=== PATIENT | female | born 1990 | race African-American/Black ===

== ENCOUNTER 2017-01-19 17:45 | Emergency (ER) | payer SELFPAY ==
[2017-01-19 18:01] VITALS: BMI 28.0
[2017-01-19] MEDS ORDERED: morphine CARPU-JECT 4 MG/1 ML DISP.SYRIN IVPUSH ONE (20:16)
[2017-01-19] MEDS ORDERED: ONDANSETRON 4 MG/2 ML VIAL IVPUSH ONE (20:16)
[2017-01-19] MEDS ORDERED: SODIUM CHLORIDE 1,000 ML IV STA (20:16)
[2017-01-19] MEDS ORDERED: morphine CARPU-JECT 4 MG/1 ML DISP.SYRIN ONE (20:23)
[2017-01-19] MEDS ORDERED: ONDANSETRON 4 MG/2 ML VIAL ONE (20:24)
[2017-01-19 20:52] LABS: BASOPHIL 0.8 % (0-2.0); EOSINOPHIL 3.2 % (0-4.5); MCH 27.6 pg (25.7-33.7); MCHC 31.9 g/dl (32.0-36.0); MEAN CELL VOLUME 86.4 fl (80-96); MEAN PLT VOLUME 8.4 fl (7.5-11.1); PLATELET COUNT 238 K/MM3 (134-434); RDW 14.3 % (11.6-15.6); WHITE BLOOD COUNT 11.3 K/mm3 (4.0-10.0)
[2017-01-19 20:56] LABS: URINE APPEARANCE CLEAR; URINE BILIRUBIN NEGATIVE (NEGATIVE); URINE COLOR STRAW; URINE GLUCOSE (UA) NEGATIVE (NEGATIVE); URINE KETONE NEGATIVE (NEGATIVE); URINE LEUK ESTERASE NEGATIVE (NEGATIVE); URINE NITRITE NEGATIVE (NEGATIVE); URINE PROTEIN NEGATIVE (NEGATIVE); URINE UROBILINOGEN NEGATIVE E.U./dl (0.2-1.0)
[2017-01-19 20:57] LABS: URINE BLOOD 1+ (NEGATIVE)
[2017-01-19 21:03] LABS: URINE MUCUS RARE; URINE RBC 7 /hpf (0-3); URINE WBC 1 /hpf (3-5)
[2017-01-19 21:21] LABS: ALBUMIN 3.9 g/dl (3.4-5.0); ANION GAP 8 (8-16); CALCIUM 9.1 mg/dL (8.5-10.1); CO2 28 mmol/L (21-32); CREATININE 0.9 mg/dL (0.55-1.02); GLUCOSE,RANDOM 84 mg/dL (74-106); SGOT/AST 19 U/L (15-37); SGPT/ALT 24 U/L (12-78)
--- NOTE | 2017-01-19 21:21 | PDOC ---
History of Present Illness - General Chief Complaint: Pain Stated Complaint: MASS ON RIGHT SIDE PAIN Time Seen by Provider: 01/19/17 19:11 History Source: Patient Exam Limitations: No Limitations - History of Present Illness Travel History: No Initial Comments: 01/19/17 23:46 26yo Female patient w/ PmHx: Ectopic x2 presents to ED c/o right lower pelvic pain. Patient states symptoms have been ongoing x 1 year, but today much worse than before. She reports Tylenol and Ibuprofen use with minimal relief. Reports no vaginal bleeding. + Nausea. LNMP: 1.5 weeks. Denies fever, rash, dysuria, hematuria, vaginal odor/discharge or any other complaints at this time. Timing/Duration: reports: getting worse Quality: reports: severe Abdominal Pain Onset Location: reports: RLQ Pain Radiation: reports: no radiation Activities at Onset: reports: none Treatment Prior to Arrive: worse with: analgesics, antacids, cold pack, heat, laxative, enema, other Aggravating Factors: worse with: None, Defecation, Eating, Emotional upset, Exertion, Hilda, Movement, Voiding, Change in position Alleviating Factors: worse with: None, Belching, Shallow Breathing, Defecation, Eating, Holding Breath, Passing Gas, Change in Position, Rest, Voiding, Vomiting Past History - Travel Traveled outside of the country in the last 30 days: No Close contact w/someone who was outside of country & ill: No - Past Medical History Allergies/Adverse Reactions: Allergies Allergy/AdvReac Type Severity Reaction Status Date / Time No Known Allergies Allergy Verified 01/19/17 18:03 Home Medications: Ambulatory Orders Ibuprofen [Motrin -] 600 mg PO Q6H PRN #20 tablet 01/20/17 Ondansetron [Zofran Odt -] 4 mg SL Q8H PRN #20 od.tablet 01/20/17 Oxycodone HCl/Acetaminophen [Percocet 5-325 mg Tablet] 1 tab PO Q6H PRN #20 tablet MDD 4 tabs 01/20/17 Thyroid Disease: No - Reproductive History Is Patient Now?: No (#): 3 Para: 1 - Psycho/Social/Smoking Cessation Hx Anxiety: No Suicidal Ideation: No Smoking History: Never smoked Have you smoked in the past 12 months: No Information on smoking cessation initiated: No Hx Alcohol Use: No Drug/Substance Use Hx: No Substance Use Type: None Review of Systems - Review of Systems Able to Perform ROS?: Yes Is the patient limited Icelandic proficient: No Constitutional: No: Chills, Fever, Night Sweats Respiratory: No: Cough, Shortness of Breath, Stridor, Wheezing Cardiac (ROS): No: Chest Pain, Palpitations, Syncope, Chest Tightness ABD/GI: Yes: Nausea, Other (RLQ Pelvic tenderness). No: Constipated, Diarrhea, Poor Appetite, Poor Fluid Intake, Vomiting, Abdominal cramping : No: Dysuria, Frequency, Flank Pain, Hematuria, Pain Musculoskeletal: No: Back Pain Integumentary: No: Bruising, Erythema, Pruritus, Rash, Sweating Neurological: No: Headache, Seizure, Tingling, Tremors, Weakness, Dizziness All Other Systems: Reviewed and Negative *Physical Exam - Vital Signs Last Vital Signs Temp Pulse Resp BP Pulse Ox 98.3 F 69 18 114/85 99 01/19/17 21:00 01/19/17 21:00 01/19/17 21:00 01/19/17 21:00 01/19/17 21:00 - Physical Exam General Appearance: Yes: Nourished, Appropriately Dressed. No: Apparent Distress, Mild Distress, Moderate Distress, Severe Distress Neck: positive: Trachea midline, Supple. negative: Decreased range of motion, Stridor, Lymphadenopathy (R), Lymphadenopathy (L) Respiratory/Chest: positive: Lungs Clear, Normal Breath Sounds. negative: Chest Tender, Respiratory Distress, Accessory Muscle Use, Labored Respiration, Rapid RR Cardiovascular: positive: Regular Rhythm, Regular Rate. negative: Edema Gastrointestinal/Abdominal: positive: Normal Bowel Sounds, Tender, Soft, Guarding, Rebound, Tenderness (Right pelvic/adenexa region). negative: Distended Musculoskeletal: positive: Normal Inspection. negative: CVA Tenderness Extremity: positive: Normal Capillary Refill, Normal Inspection, Normal Range of Motion. negative: Pedal Edema, Swelling, Calf Tenderness, Erythema Integumentary: positive: Normal Color, Dry, Warm. negative: Bruising Neurologic: positive: community service manager II-XII NML intact, Fully Oriented, Alert, Normal Mood/ Affect, Normal Response, Motor Strength 5/5 ED Treatment Course - LABORATORY CBC & Chemistry Diagram: 01/19/17 20:26 01/19/17 20:34 - ADDITIONAL ORDERS Additional order review: Laboratory Results 01/19/17 20:45 Urine Color Straw Urine Appearance Clear Urine pH 7.0 Urine Protein Negative Urine Glucose (UA) Negative Urine Ketones Negative Urine Blood 1+ H Urine Nitrite Negative Urine Bilirubin Negative Urine Urobilinogen Negative Ur Leukocyte Esterase Negative Urine RBC 7 Urine WBC 1 Ur Epithelial Cells Rare Urine Mucus Rare Urine HCG, Qual Negative 01/19/17 20:26 RBC 4.91 MCV 86.4 MCHC 31.9 L RDW 14.3 MPV 8.4 Neutrophils % 60.0 Lymphocytes % 30.7 Monocytes % 5.3 Eosinophils % 3.2 Basophils % 0.8 - RADIOLOGY Radiology Studies Ordered: Category Date Time Status ABDOMEN & PELVIS CT WITH CONTR [CT] Stat CT Scan 01/19/17 21:02 Ordered - Medications Given in the ED: ED Medications Discontinued Medications Generic Name Dose Route Start Last Admin Trade Name Freq PRN Reason Stop Dose Admin Sodium Chloride 1,000 mls @ 1,000 mls/hr 01/19/17 20:16 01/19/17 20:38 Normal Saline - IV 01/19/17 21:15 1,000 mls/hr ASDIR STA Administration Morphine Sulfate 4 mg 01/19/17 20:16 01/19/17 20:38 Morphine Injection - IVPUSH 01/19/17 20:17 4 mg ONCE ONE Administration Ondansetron HCl 4 mg 01/19/17 20:16 01/19/17 20:38 Zofran Injection IVPUSH 01/19/17 20:17 4 mg ONCE ONE Administration *DC/Admit/Observation/Transfer 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 FULLER FOR FURTHER EVALUATION. TAKE MEDICATIONS PRESCRIBED. DO NOT DRIVE, DRINK ALCOHOL, OR OPERATE HEAVY MACHINERY WHILE TAKING PERCOCET. YOU NEED TO CALL TO SCHEDULE APPOINTMENT SOON POSSIBLE AND DO NOT PUT THIS OFF. Print Language: [place] - Post Discharge Activity Work/School Note: Back to Work
[2017-01-19 21:22] LABS: ALK PHOS 86 U/L (45-117); BILIRUBIN,TOTAL 0.2 mg/dL (0.2-1.0); TOT PROT 7.5 g/dl (6.4-8.2)
--- NOTE | 2017-01-19 21:49 | PDOC ---
*Physical Exam - Vital Signs Last Vital Signs Temp Pulse Resp BP Pulse Ox 98.3 F 69 18 114/85 99 01/19/17 21:00 01/19/17 21:00 01/19/17 21:00 01/19/17 21:00 01/19/17 21:00 ED Treatment Course - LABORATORY CBC & Chemistry Diagram: 01/19/17 20:26 01/19/17 20:34 - ADDITIONAL ORDERS Additional order review: Laboratory Results 01/19/17 01/19/17 20:45 20:34 Sodium 141 Potassium 4.6 Chloride 105 Carbon Dioxide 28 Anion Gap 8 BUN 11 Creatinine 0.9 Creat Clearance w eGFR > 60 Random Glucose 84 Calcium 9.1 Total Bilirubin 0.2 AST 19 ALT 24 Alkaline Phosphatase 86 Total Protein 7.5 Albumin 3.9 Urine Color Straw Urine Appearance Clear Urine pH 7.0 Urine Protein Negative Urine Glucose (UA) Negative Urine Ketones Negative Urine Blood 1+ H Urine Nitrite Negative Urine Bilirubin Negative Urine Urobilinogen Negative Ur Leukocyte Esterase Negative Urine RBC 7 Urine WBC 1 Ur Epithelial Cells Rare Urine Mucus Rare Urine HCG, Qual Negative 01/19/17 20:26 RBC 4.91 MCV 86.4 MCHC 31.9 L RDW 14.3 MPV 8.4 Neutrophils % 60.0 Lymphocytes % 30.7 Monocytes % 5.3 Eosinophils % 3.2 Basophils % 0.8 - Medications Given in the ED: ED Medications Discontinued Medications Generic Name Dose Route Start Last Admin Trade Name Freq PRN Reason Stop Dose Admin Sodium Chloride 1,000 mls @ 1,000 mls/hr 01/19/17 20:16 01/19/17 20:38 Normal Saline - IV 01/19/17 21:15 1,000 mls/hr ASDIR STA Administration Morphine Sulfate 4 mg 01/19/17 20:16 01/19/17 20:38 Morphine Injection - IVPUSH 01/19/17 20:17 4 mg ONCE ONE Administration Ondansetron HCl 4 mg 01/19/17 20:16 01/19/17 20:38 Zofran Injection IVPUSH 01/19/17 20:17 4 mg ONCE ONE Administration Medical Decision Making - Medical Decision Making 01/19/17 21:49 agree with care from SARINA Mtz *DC/Admit/Observation/Transfer 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 FULLER FOR FURTHER EVALUATION. TAKE MEDICATIONS PRESCRIBED. DO NOT DRIVE, DRINK ALCOHOL, OR OPERATE HEAVY MACHINERY WHILE TAKING PERCOCET. YOU NEED TO CALL TO SCHEDULE APPOINTMENT SOON POSSIBLE AND DO NOT PUT THIS OFF. Print Language: CITIZEN OF [place] - Post Discharge Activity Work/School Note: Back to Work
[2017-01-20 01:40] VITALS: BP 129/84; PULSE 72; TEMP 98.7
== END 2017-01-20 01:41 | disposition home or self-care (01) ==
LOC: JER 17:45
PROC: 3E033NZ Introduction of Analgesics, Hypnotics, Sedatives into Peripheral Vein, Percutaneous Approach (ICD-10-PCS; principal; 2017-01-19)
PROC: 3E033GC Introduction of Other Therapeutic Substance into Peripheral Vein, Percutaneous Approach (ICD-10-PCS; 2017-01-19)
DX: D36.7 Benign neoplasm of other specified sites (principal); R19.03 Right lower quadrant abdominal swelling, mass and lump
CPT/HCPCS: 36415; 74177-TC; 76856-TC; 80053; 81003; 81015; 84703; 85025; 86850; 86900; 86901; 87086; 87491; 87591; 99283-25

== ENCOUNTER 2017-08-10 17:21 | Emergency (ER) | payer OTHER ==
[2017-08-10 17:57] VITALS: BMI 28.2
[2017-08-10] MEDS ORDERED: ACETAMINOPHEN 1000 MG/100 ML VIAL (NON FORMULARY) IVPB ONE (18:25)
[2017-08-10] MEDS ORDERED: ACETAMINOPHEN INJECTION 100 ML IVPB ONE (18:26)
[2017-08-10] MEDS ORDERED: SODIUM CHLORIDE 1,000 ML IV STA (18:27)
[2017-08-10 18:39] LABS: BASOPHIL 0.6 % (0-2.0); EOSINOPHIL 1.1 % (0-4.5); MCH 28.2 pg (25.7-33.7); MCHC 32.5 g/dl (32.0-36.0); MEAN CELL VOLUME 86.8 fl (80-96); MEAN PLT VOLUME 8.3 fl (7.5-11.1); NEUTROPHILS 69.8 % (42.8-82.8); PLATELET COUNT 226 K/MM3 (134-434); RDW 13.6 % (11.6-15.6); WHITE BLOOD COUNT 9.5 K/mm3 (4.0-10.0)
--- NOTE | 2017-08-10 18:41 | PDOC ---
History of Present Illness - General History Source: Patient Exam Limitations: No Limitations - History of Present Illness Initial Comments: 08/10/17 18:56 The patient is a 26 year old female with no significant past medical history who presents to the ED complaining of approximately 3 days of left flank pain and left lower quadrant pain. Patient reports the pain is moderate, sharp, and worse with lying flat. She also reports associated nausea, chills, and dysuria. No hematuria. No vomiting or diarrhea. Does not follow with a PCP. <Bell Baumann - Last Filed: 08/11/17 00:53> <Yvette Brunson - Last Filed: 08/11/17 01:12> - General Chief Complaint: SIRS, Suspected/Possible Stated Complaint: ABDOMINAL PAIN Time Seen by Provider: 08/10/17 17:40 Past History <Bell Baumann - Last Filed: 08/11/17 00:53> - Past Medical History COPD: No Thyroid Disease: No - Reproductive History Is Patient Now?: No (#): 3 Para: 1 Dysfunctional Uterine Bleeding: No Ectopic : Yes Endometrial CA: No Therapeutic (s) & number: No Tubal Ligation: No - Suicide/Smoking/Psychosocial Hx Smoking History: Never smoked Have you smoked in the past 12 months: Yes Number of Cigarettes Smoked Daily: 2 Information on smoking cessation initiated: Yes 'Breaking Loose' booklet given: 08/10/17 Hx Alcohol Use: No Drug/Substance Use Hx: No Substance Use Type: None <Yvette Brunson - Last Filed: 08/11/17 01:12> - Past Medical History Allergies/Adverse Reactions: Allergies Allergy/AdvReac Type Severity Reaction Status Date / Time No Known Allergies Allergy Verified 08/10/17 17:54 Home Medications: Ambulatory Orders Ibuprofen [Motrin -] 600 mg PO QID PRN #12 tablet 08/11/17 Levofloxacin [Levaquin -] 500 mg PO DAILY #10 tablet 08/11/17 Ondansetron [Zofran Odt -] 4 mg SL BID PRN #14 od.tablet 08/11/17 Review of Systems - Review of Systems Able to Perform ROS?: Yes Comments:: 08/10/17 18:59 GENERAL/CONSTITUTIONAL: No fever or chills. No weakness. HEAD, EYES, EARS, NOSE AND THROAT: No change in vision. No ear pain or discharge. No sore throat. CARDIOVASCULAR: No chest pain or shortness of breath. RESPIRATORY: No cough, wheezing, or hemoptysis. GASTROINTESTINAL: +Nausea. No vomiting, diarrhea or constipation. GENITOURINARY: +Left flank pain, left lower quadrant pain. +Dysuria. No hematuria. MUSCULOSKELETAL: No joint or muscle swelling or pain. No neck pain. SKIN: No rash NEUROLOGIC: No headache, vertigo, loss of consciousness, or change in strength/ sensation. ENDOCRINE: No increased thirst. No abnormal weight change. HEMATOLOGIC/LYMPHATIC: No anemia, easy bleeding, or history of blood clots. ALLERGIC/IMMUNOLOGIC: No hives or skin allergy. <Bell Baumann - Last Filed: 08/11/17 00:53> *Physical Exam - Vital Signs Last Vital Signs Temp Pulse Resp BP Pulse Ox 99.8 F H 93 H 18 118/72 99 08/10/17 17:55 08/10/17 17:55 08/10/17 17:55 08/10/17 17:55 08/10/17 17:55 - Physical Exam Comments: 08/10/17 19:00 GENERAL: Awake, alert, and fully oriented. +Mildly uncomfortable appearing. HEAD: No signs of trauma EYES: PERRLA, EOMI, sclera anicteric, conjunctiva clear ENT: Auricles normal inspection, nares patent. Moist mucosa NECK: Normal ROM, supple, no JVD, or masses LUNGS: Breath sounds equal, clear to auscultation bilaterally. No wheezes, and no crackles HEART: Regular rate and rhythm, normal S1 and S2, no murmurs, rubs or gallops ABDOMEN:+Diffuse left sided discomfort. Soft, normoactive bowel sounds. No guarding, no rebound. No masses BACK: +Left CVA tenderness. No right flank tenderness. EXTREMITIES: Normal range of motion, no edema. No clubbing or cyanosis. No cords, erythema, or tenderness NEUROLOGICAL: Alert and oriented x 3. Moves all extremities. Face is symmetric. SKIN: Warm, Dry, normal turgor, no rashes or lesions noted. <Bell Baumann - Last Filed: 08/11/17 00:53> - Vital Signs Last Vital Signs Temp Pulse Resp BP Pulse Ox 99.8 F H 93 H 18 118/72 99 08/10/17 17:55 08/10/17 17:55 08/10/17 17:55 08/10/17 17:55 08/10/17 17:55 <Yvette Brunson - Last Filed: 08/11/17 01:12> ED Treatment Course - LABORATORY CBC & Chemistry Diagram: 08/10/17 18:24 08/10/17 18:24 - ADDITIONAL ORDERS Additional order review: Laboratory Results 08/10/17 18:24 VBG pH 7.38 POC VBG pCO2 46.5 POC VBG pO2 34.4 Mixed VBG HCO3 26.7 H 08/10/17 18:24 RBC 4.38 MCV 86.8 MCHC 32.5 RDW 13.6 MPV 8.3 Neutrophils % 69.8 Lymphocytes % 18.9 D Monocytes % 9.6 D Eosinophils % 1.1 Basophils % 0.6 - RADIOLOGY Radiograph Interpretation: 08/11/17 00:54 CT of abdomen and pelvis, reviewed and interpreted by Imaging Community Health Advisor. Impression: Suspect left pyelonephritis. No renal stones or evidence of obstructive uropathy. Appendix is normal. Superficial subcutaneous soft tissue denisty along the right anterior pelvic wall as described. - Medications Given in the ED: ED Medications Discontinued Medications Generic Name Dose Route Start Last Admin Trade Name Freq PRN Reason Stop Dose Admin Acetaminophen 1,000 mg 08/10/17 18:25 08/10/17 18:32 Ofirmev Injection - IVPB 08/10/17 18:26 1,000 mg ONCE ONE Administration <Bell Baumann - Last Filed: 08/11/17 00:53> - LABORATORY CBC & Chemistry Diagram: 08/10/17 18:24 08/10/17 18:24 - Medications Given in the ED: ED Medications Discontinued Medications Generic Name Dose Route Start Last Admin Trade Name Freq PRN Reason Stop Dose Admin Acetaminophen 1,000 mg 08/10/17 18:25 08/10/17 18:32 Ofirmev Injection - IVPB 08/10/17 18:26 1,000 mg ONCE ONE Administration <Yvette Brunson - Last Filed: 08/11/17 01:12> Medical Decision Making - Medical Decision Making 08/11/17 00:47 26-year-old female presents with several days of flank pain and chills. Past medical history noncontributory. Chest patient has low-grade fever negative test Urinalysis shows UTI and patient started on antibiotics 08/11/17 01:10 The patient does have a history of kidney stones in the past with CAT scan did not show any renal stones as evidence of obstructive uropathy. Her appendix is normal. CAT scan findings consistent of left pyelonephritis IMP pyelonephritis pt given levaquin and RX for levaquin eprecribed to [facility] -she has not been vomiting and will be discharged home w sublingual zofran to be used prn nausea <Yvette Brunson - Last Filed: 08/11/17 01:12> *DC/Admit/Observation/Transfer - Attestations Scribe Attestion: 08/10/17 19:01 Documentation prepared by Bell Baumann, acting as medical and scientific illustrator for Yvette Brunson MD. <Bell Baumann - Last Filed: 08/11/17 00:53> <Yvette Brunson - Last Filed: 08/11/17 01:12> Diagnosis at time of Disposition: Pyelonephritis - Discharge Dispostion Disposition: HOME Condition at time of disposition: Improved - Prescriptions Prescriptions: Ibuprofen [Motrin -] 600 mg PO QID PRN #12 tablet PRN Reason: Back Pain Levofloxacin [Levaquin -] 500 mg PO DAILY #10 tablet Ondansetron [Zofran Odt -] 4 mg SL BID PRN #14 od.tablet PRN Reason: Nausea And/Or Vomiting - Patient Instructions Printed Discharge Instructions: DI for Kidney Infection, DI for Fever (Symptom ) -- Adult Additional Instructions: 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
[2017-08-10 18:47] LABS: VENOUS BLOOD GAS HCO3 26.7 meq/L (19-25); VENOUS PH 7.38 (7.32-7.42)
[2017-08-10 18:53] LABS: INR 1.12 (0.82-1.09); PROTHROMBIN TIME (PATIENT) 12.6 SEC (9.98-11.88)
[2017-08-10 18:56] LABS: ACTIVATED PTT 27.9 SECONDS (26.9-34.4)
[2017-08-10 19:06] LABS: ALBUMIN 3.1 g/dl (3.4-5.0); ANION GAP 8 (8-16); BILIRUBIN,TOTAL 0.2 mg/dL (0.2-1.0); CALCIUM 8.1 mg/dL (8.5-10.1); CO2 24 mmol/L (21-32); CREATININE 0.8 mg/dL (0.55-1.02); GLUCOSE,RANDOM 72 mg/dL (74-106); SGOT/AST 15 U/L (15-37); SGPT/ALT 24 U/L (12-78); TOT PROT 6.9 g/dl (6.4-8.2)
[2017-08-10 19:07] LABS: ALK PHOS 70 U/L (45-117)
[2017-08-10 22:06] LABS: URINE APPEARANCE CLOUDY; URINE BILIRUBIN NEGATIVE (NEGATIVE); URINE BLOOD 2+ (NEGATIVE); URINE COLOR YELLOW; URINE GLUCOSE (UA) NEGATIVE (NEGATIVE); URINE KETONE NEGATIVE (NEGATIVE); URINE NITRITE POSITIVE (NEGATIVE); URINE PROTEIN NEGATIVE (NEGATIVE); URINE UROBILINOGEN 4.0 E.U/dl mg/dL (0.2-1.0)
[2017-08-10 22:20] LABS: URINE LEUK ESTERASE 1+ (NEGATIVE)
[2017-08-10 22:31] LABS: URINE BACTERIA MODERATE /hpf (NONE SEEN); URINE MUCUS RARE; URINE RBC 7 /hpf (0-3); URINE WBC 47 /hpf (3-5)
[2017-08-10] MEDS ORDERED: SULFAMETHOXAZOLE/TRIMETHOPRIM 800MG/160MG D.S. TABLET PO ONE (23:37)
[2017-08-10] MEDS ORDERED: IBUPROFEN 600 MG TABLET (FP) PO ONE (23:37)
[2017-08-11] MEDS ORDERED: SULFAMETHOXAZOLE/TRIMETHOPRIM 800MG/160MG D.S. TABLET ONE (00:14)
[2017-08-11] MEDS ORDERED: IBUPROFEN 600 MG TABLET (FP) PO ONE (00:14)
[2017-08-11 00:40] VITALS: BP 111/59; PULSE 88; TEMP 98.2
[2017-08-11] MEDS ORDERED: LEVOFLOXACIN 750 MG TABLET PO STA (01:05)
[2017-08-11] MEDS ORDERED: LEVOFLOXACIN 500 MG TABLET (FP) ONE (01:11)
[2017-08-11 09:00] LABS: URINE LEUK ESTERASE 1+ (NEGATIVE)
== END 2017-08-11 01:24 | disposition home or self-care (01) ==
LOC: JER 17:21
PROC: 3E0337Z Introduction of Electrolytic and Water Balance Substance into Peripheral Vein, Percutaneous Approach (ICD-10-PCS; principal; 2017-08-10)
PROC: 3E0333Z Introduction of Anti-inflammatory into Peripheral Vein, Percutaneous Approach (ICD-10-PCS; 2017-08-10)
DX: N12 Tubulo-interstitial nephritis, not specified as acute or chronic (principal)
CPT/HCPCS: 36415; 74176; 80053; 81003; 81015; 82803; 83605; 84703; 85025; 85610; 85730; 87040; 87086; 87186; 99285-25

== ENCOUNTER 2020-12-16 16:41 | Emergency (ER) | payer OTHER ==
[2020-12-16 17:10] VITALS: TEMP 97.8; BMI 71.8
[2020-12-16] MEDS ORDERED: ONDANSETRON 4 MG/2 ML VIAL IVPB ONE (17:18)
[2020-12-16] MEDS ORDERED: SODIUM CHLORIDE 1,000 ML IV STA (17:18)
[2020-12-16] MEDS ORDERED: morphine CARPU-JECT 4 MG/1 ML DISP.SYRIN IVPUSH ONE ×2 (17:36→21:32)
[2020-12-16 18:03] LABS: BASO % 0.6 % (0-2.0); HEMATOCRIT 42.7 % (32.4-45.2); HEMOGLOBIN 13.8 GM/dL (10.7-15.3); LYMPH % 19.4 % (8-40); MCH 28.2 pg (25.7-33.7); MCHC 32.4 g/dl (32.0-36.0); MEAN CELL VOLUME 87.2 fl (80-96); MEAN PLT VOLUME 8.3 fl (7.5-11.1); PLATELET COUNT 257 K/MM3 (134-434); RDW 14.4 % (11.6-15.6)
[2020-12-16] MEDS ORDERED: morphine SULFATE 4 MG/ML VIAL ONE (18:06)
[2020-12-16] MEDS ORDERED: ONDANSETRON 4 MG/2 ML VIAL ONE (18:06)
[2020-12-16 18:08] LABS: EPI CELLS 16 /uL (0-25.1); HCG,QUALITATIVE URINE Negative; HYALINE CASTS 0 /uL (0-3.1); PH,URINE 7.5 (5.0-8.0); URINE APPEARANCE CLEAR; URINE BACTERIA 172 /uL (0-1359); URINE BILIRUBIN NEGATIVE (NEGATIVE); URINE COLOR YELLOW; URINE GLUCOSE (UA) NEGATIVE (NEGATIVE); URINE KETONE NEGATIVE (NEGATIVE); URINE LEUK ESTERASE 1+ (NEGATIVE); URINE NITRITE NEGATIVE (NEGATIVE); URINE PROTEIN NEGATIVE (NEGATIVE); URINE RBC 72 /uL (0-23.9); URINE WBC 12 /uL (0-25.8)
[2020-12-16 18:32] LABS: ALBUMIN 3.7 g/dl (3.4-5.0); BLOOD UREA NITROGEN 11.6 mg/dL (7-18); CALCIUM 9.1 mg/dL (8.5-10.1)
[2020-12-16 18:35] LABS: CREATININE 0.9 mg/dL (0.55-1.3)
[2020-12-16 18:37] LABS: BILIRUBIN,TOTAL 0.5 mg/dL (0.2-1); TOT PROT 7.5 g/dl (6.4-8.2)
[2020-12-16] MEDS ORDERED: ACETAMINOPHEN 1000 MG/100 ML VIAL (NON FORMULARY) IVPB ONE (21:32)
[2020-12-16] MEDS ORDERED: ACETAMINOPHEN 500 MG TABLET (FP) PO ONE (22:24)
[2020-12-16] MEDS ORDERED: KETOROLAC TROMETHAMINE 30 MG/1 ML VIAL IVPUSH ONE (22:24)
[2020-12-16] MEDS ORDERED: KETOROLAC TROMETHAMINE 30 MG/1 ML VIAL ONE (22:25)
[2020-12-16] MEDS ORDERED: ACETAMINOPHEN 500 MG TABLET (FP) ONE (22:26)
[2020-12-16 22:39] VITALS: BP 127/42; PULSE 67
== END 2020-12-16 23:57 | disposition home or self-care (01) ==
LOC: JER 16:41
PROC: 3E0333Z Introduction of Anti-inflammatory into Peripheral Vein, Percutaneous Approach (ICD-10-PCS; principal; 2020-12-16)
PROC: 3E033NZ Introduction of Analgesics, Hypnotics, Sedatives into Peripheral Vein, Percutaneous Approach (ICD-10-PCS; 2020-12-16)
PROC: 3E033GC Introduction of Other Therapeutic Substance into Peripheral Vein, Percutaneous Approach (ICD-10-PCS; 2020-12-16)
PROC: 3E0337Z Introduction of Electrolytic and Water Balance Substance into Peripheral Vein, Percutaneous Approach (ICD-10-PCS; 2020-12-16)
DX: R10.84 Generalized abdominal pain (principal); N83.201 Unspecified ovarian cyst, right side
CPT/HCPCS: 36415; 74177-TC; 76830-TC; 80053; 81003; 84703; 85025; 87077; 87086; 87491; 87591; 99285-25; Q9967

== ENCOUNTER 2021-05-06 17:20 | Emergency (ER) | payer OTHER ==
[2021-05-06 17:44] VITALS: BP 126/61; PULSE 84; TEMP 98.1; BMI 29.2
[2021-05-06] MEDS ORDERED: IBUPROFEN 600 MG TABLET (FP) PO ONE ×2 (18:25→18:55)
== END 2021-05-06 21:25 | disposition home or self-care (01) ==
LOC: JER 17:20
DX: U07.1 COVID-19 (principal)
CPT/HCPCS: 71046-TC-FY; 99283-25; C9803; U0003; U0005

== ENCOUNTER 2021-05-07 16:06 | Emergency (ER) | payer OTHER ==
[2021-05-07 16:48] VITALS: BMI 29.1
[2021-05-07] MEDS ORDERED: SODIUM CHLORIDE 0.9% 500 ML INFUS.BAG IV ONE (17:36)
[2021-05-07] MEDS ORDERED: guaiFENesin 200 MG/10 ML 10 ML UNIT-DOSE CUPS PO ONE (17:36)
[2021-05-07] MEDS ORDERED: FAMOTIDINE 20 MG/50 ML IVPB 20 MG/50 ML MG IVPB ONE ×2 (17:56→18:04)
[2021-05-07] MEDS ORDERED: ONDANSETRON 4 MG/2 ML VIAL IVPUSH ONE (17:56)
[2021-05-07] MEDS ORDERED: guaiFENesin/D-METHORPHAN HB 10 ML UNIT-DOSE CUPS ONE (18:04)
[2021-05-07] MEDS ORDERED: ONDANSETRON 4 MG/2 ML VIAL ONE (18:04)
[2021-05-07 19:05] LABS: BASO % 1.1 % (0-2.0); EOS % 3.3 % (0-4.5); HEMATOCRIT 37.1 % (32.4-45.2); HEMOGLOBIN 12.4 GM/dL (10.7-15.3); LYMPH % 41.4 % (8-40); MCH 28.7 pg (25.7-33.7); MCHC 33.3 g/dl (32.0-36.0); MEAN CELL VOLUME 85.9 fl (80-96); MEAN PLT VOLUME 8.3 fl (7.5-11.1); MONO % 14.6 % (3.8-10.2); NEUT % 39.6 % (42.8-82.8); PLATELET COUNT 208 10^3/uL (134-434); RBC 4.32 M/mm3 (3.60-5.2); RDW 14.2 % (11.6-15.6); WHITE BLOOD COUNT 3.4 K/mm3 (4.0-10.0)
[2021-05-07 19:21] LABS: ALBUMIN 3.2 g/dl (3.4-5.0); BLOOD UREA NITROGEN 9.5 mg/dL (7-18); CALCIUM 8.3 mg/dL (8.5-10.1)
[2021-05-07 19:25] LABS: CREATININE 0.9 mg/dL (0.55-1.3)
[2021-05-07 19:26] LABS: BILIRUBIN,TOTAL 0.2 mg/dL (0.2-1); TOT PROT 6.7 g/dl (6.4-8.2)
[2021-05-07] MEDS ORDERED: CASIRIVIMAB/IMDEVIMAB 10 ML in SODIUM CHLORIDE 100 ML IVPB ONE (19:27)
[2021-05-07] MEDS ORDERED: ACETAMINOPHEN 1000 MG/100 ML VIAL (NON FORMULARY) IVPB ONE (21:02)
[2021-05-07 21:04] VITALS: TEMP 98.4
[2021-05-07] MEDS ORDERED: ACETAMINOPHEN INJECTION 100 ML IVPB ONE (21:08)
[2021-05-07 22:41] VITALS: BP 128/86; PULSE 80
== END 2021-05-07 22:42 | disposition home or self-care (01) ==
LOC: JER 16:06
PROC: 3E0333Z Introduction of Anti-inflammatory into Peripheral Vein, Percutaneous Approach (ICD-10-PCS; principal; 2021-05-07)
PROC: 3E03329 Introduction of Other Anti-infective into Peripheral Vein, Percutaneous Approach (ICD-10-PCS; 2021-05-07)
PROC: 3E033GC Introduction of Other Therapeutic Substance into Peripheral Vein, Percutaneous Approach (ICD-10-PCS; 2021-05-07)
PROC: 3E033GC Introduction of Other Therapeutic Substance into Peripheral Vein, Percutaneous Approach (ICD-10-PCS; 2021-05-07)
DX: U07.1 COVID-19 (principal)
CPT/HCPCS: 36415; 80053; 85025; 99284-25; J0131; M0240; Q0240

== ENCOUNTER 2023-04-20 18:20 | Emergency (ER) | payer OTHER ==
[2023-04-20 18:24] VITALS: BP 123/85; PULSE 73; RESP 18; TEMP 97.4; BMI 26.6
[2023-04-20] MEDS ORDERED: KETOROLAC TROMETHAMINE 30 MG/1 ML VIAL IVPUSH ONE (19:44)
[2023-04-20] MEDS ORDERED: ONDANSETRON 4 MG/2 ML VIAL IVPUSH ONE (19:44)
[2023-04-20] MEDS ORDERED: FAMOTIDINE 20 MG/50 ML IVPB 20 MG/50 ML MG IVPB ONE ×2 (19:44→20:08)
[2023-04-20] MEDS ORDERED: SODIUM CHLORIDE 0.9% 500 ML INFUS.BAG IV ONE (19:44)
[2023-04-20] MEDS ORDERED: KETOROLAC TROMETHAMINE 60 MG/2 ML VIAL ONE (20:08)
[2023-04-20] MEDS ORDERED: ONDANSETRON 4 MG/2 ML VIAL ONE (20:08)
[2023-04-20 20:43] LABS: BASO % 0.6 % (0-2.0); EOS % 2.4 % (0-4.5); HEMATOCRIT 40.2 % (32.4-45.2); LYMPH % 31.3 % (8-40); MCH 28.1 pg (25.7-33.7); MCHC 32.3 g/dl (32.0-36.0); MEAN CELL VOLUME 86.9 fl (80-96); MEAN PLT VOLUME 7.9 fl (7.5-11.1); MONO % 5.9 % (3.8-10.2); NEUT % 59.8 % (42.8-82.8); PLATELET COUNT 269 10^3/uL (134-434); RBC 4.63 M/mm3 (3.60-5.2); RDW 14.5 % (11.6-15.6); WHITE BLOOD COUNT 10.6 K/mm3 (4.0-10.0)
[2023-04-20 20:53] LABS: POTASSIUM 3.9 mmol/L (3.5-5.1)
[2023-04-20 20:55] LABS: ALBUMIN 3.5 g/dl (3.4-5.0); BLOOD UREA NITROGEN 9.6 mg/dL (7-18); CALCIUM 8.5 mg/dL (8.5-10.1)
[2023-04-20 20:59] LABS: CREATININE 0.7 mg/dL (0.55-1.3)
[2023-04-20 21:00] LABS: BILIRUBIN,TOTAL 0.2 mg/dL (0.2-1)
== END 2023-04-21 03:38 | disposition home or self-care (01) ==
LOC: JER 18:20
PROC: 3E033GC Introduction of Other Therapeutic Substance into Peripheral Vein, Percutaneous Approach (ICD-10-PCS; principal; 2023-04-20)
PROC: 3E0333Z Introduction of Anti-inflammatory into Peripheral Vein, Percutaneous Approach (ICD-10-PCS; 2023-04-20)
PROC: 3E033GC Introduction of Other Therapeutic Substance into Peripheral Vein, Percutaneous Approach (ICD-10-PCS; 2023-04-20)
DX: R10.84 Generalized abdominal pain (principal); R19.04 Left lower quadrant abdominal swelling, mass and lump; R11.2 Nausea with vomiting, unspecified; R19.7 Diarrhea, unspecified; R68.83 Chills (without fever); R42 Dizziness and giddiness
CPT/HCPCS: 36415; 74177-TC; 80053; 84703; 85025; 99285-25; Q9967